=== PATIENT | female | born 1980 | race Caucasian/White ===

== ENCOUNTER 2016-07-31 02:06 | Observation (INO) | payer BC, OTHER ==
[2016-07-31 03:42] LABS: HEMOGLOBIN 10.9 gm/dl (12.3-15.3); RED BLOOD COUNT 3.53 M/UL (4.00-5.10); WHITE BLOOD COUNT 8.2 K/UL (4.5-11.0)
[2016-07-31 03:59] LABS: BUN/CREATININE RATIO 12 (0-10)
== END 2016-07-31 19:23 | disposition home or self-care (01) ==
LOC: GENOP 02:06 → OB 06:52
PROVIDERS: ADMIT Obstetrics & Gynecology
DX: O99.613 Diseases of the digestive system complicating pregnancy, third trimester (principal); A08.4 Viral intestinal infection, unspecified; K21.9 Gastro-esophageal reflux disease without esophagitis; O99.89 Other specified diseases and conditions complicating pregnancy, childbirth and the puerperium; R10.9 Unspecified abdominal pain; O99.343 Other mental disorders complicating pregnancy, third trimester; F32.9 Major depressive disorder, single episode, unspecified; O24.419 Gestational diabetes mellitus in pregnancy, unspecified control; O99.513 Diseases of the respiratory system complicating pregnancy, third trimester; J45.909 Unspecified asthma, uncomplicated; Z3A.35 35 weeks gestation of pregnancy; Z90.49 Acquired absence of other specified parts of digestive tract
CPT/HCPCS: 80053; 81001; 82150; 83690; 85027; 96360; 96361; 96367; 96374; 96375; 96376; C9113; G0378; J2405; J2550; J7050; J7120

== ENCOUNTER 2016-08-29 05:03 | Inpatient (IN) | payer BC, OTHER ==
[~2016-08-29] VITALS: Ht 170.2 cm; Wt 127.0 kg
[2016-08-29 05:56] LABS: HEMOGLOBIN 11.1 gm/dl (12.3-15.3); RED BLOOD COUNT 3.55 M/UL (4.00-5.10); WHITE BLOOD COUNT 8.9 K/UL (4.5-11.0)
[2016-08-30 03:02] LABS: HEMOGLOBIN 9.8 gm/dl (12.3-15.3)
== END 2016-08-31 12:04 | disposition home or self-care (01) | DRG 775 ==
LOC: OB 05:03
PROVIDERS: ADMIT Obstetrics & Gynecology
PROC: 10907ZC Drainage of Amniotic Fluid, Therapeutic from Products of Conception, Via Natural or Artificial Opening (ICD-10-PCS; principal; 2016-08-29)
PROC: 10E0XZZ Delivery of Products of Conception, External Approach (ICD-10-PCS; 2016-08-29)
PROC: 0HQ9XZZ Repair Perineum Skin, External Approach (ICD-10-PCS; 2016-08-29)
PROC: 3E0234Z Introduction of Serum, Toxoid and Vaccine into Muscle, Percutaneous Approach (ICD-10-PCS; 2016-08-31)
DX: O99.214 Obesity complicating childbirth (principal); O99.344 Other mental disorders complicating childbirth; F32.9 Major depressive disorder, single episode, unspecified; M19.90 Unspecified osteoarthritis, unspecified site; J45.909 Unspecified asthma, uncomplicated; K58.9 Irritable bowel syndrome, unspecified; K44.9 Diaphragmatic hernia without obstruction or gangrene; O75.89 Other specified complications of labor and delivery; R22.43 Localized swelling, mass and lump, lower limb, bilateral; O70.9 Perineal laceration during delivery, unspecified; O75.81 Maternal exhaustion complicating labor and delivery; Z3A.39 39 weeks gestation of pregnancy; Z37.0 Single live birth; Z82.49 Family history of ischemic heart disease and other diseases of the circulatory system; Z83.3 Family history of diabetes mellitus; Z83.49 Family history of other endocrine, nutritional and metabolic diseases; Z23 Encounter for immunization
CPT/HCPCS: 36415; 51702; 81001; 82800; 85014; 85018; 85025; 90715; J2590; J2795; J3010; J7120

== ENCOUNTER 2016-09-06 15:20 | Observation (INO) | payer BC, OTHER ==
[~2016-09-06] VITALS: Ht 170.2 cm; Wt 127.0 kg
[2016-09-06 16:05] LABS: HEMOGLOBIN 10.9 gm/dl (12.3-15.3); RED BLOOD COUNT 3.51 M/UL (4.00-5.10); WHITE BLOOD COUNT 6.3 K/UL (4.5-11.0)
[2016-09-06 16:42] LABS: BUN/CREATININE RATIO 23 (0-10)
[2016-09-07 05:37] LABS: BUN/CREATININE RATIO 17 (0-10)
[2016-09-07] MEDS ORDERED: LISINOPRIL5 MG PO (16:37)
== END 2016-09-07 16:59 | disposition home or self-care (01) ==
LOC: ER1 15:20 → ZEROF 18:00 → OB 21:50
PROVIDERS: Emergency Medicine; ADMIT Obstetrics & Gynecology
DX: O16.5 Unspecified maternal hypertension, complicating the puerperium (principal); I11.0 Hypertensive heart disease with heart failure; O99.43 Diseases of the circulatory system complicating the puerperium; I50.30 Unspecified diastolic (congestive) heart failure; I07.1 Rheumatic tricuspid insufficiency; R00.1 Bradycardia, unspecified; Z87.19 Personal history of other diseases of the digestive system; Z87.891 Personal history of nicotine dependence; Z82.49 Family history of ischemic heart disease and other diseases of the circulatory system; Z90.49 Acquired absence of other specified parts of digestive tract; Z79.899 Other long term (current) drug therapy
CPT/HCPCS: ECHO; 36415; 71010; 80048; 80053; 81001; 82150; 82550; 82553; 83690; 83874; 83880; 84484; 85025; 85610; 85730; 87086; 93005; 93306; 96374; 96375; 96376; 99285; G0378; J0360; J1940; J2550

== ENCOUNTER → 2016-09-08 | Outpatient (CLI) | payer BC, OTHER ==
[~2016-09-08] MED LIST: LISINOPRIL5 MG PO
== END ==
LOC: LAB 07:33
DX: Z53.9 Procedure and treatment not carried out, unspecified reason (principal)

== ENCOUNTER 2022-01-07 12:00 | Emergency (ER) | payer BC ==
[2022-01-07 12:30] LABS: HEMOGLOBIN 13.6 gm/dl (12.3-15.3); RED BLOOD COUNT 4.76 M/UL (4.00-5.10); WHITE BLOOD COUNT 2.6 K/UL (4.5-11.0)
[2022-01-07 12:51] LABS: BUN/CREATININE RATIO 10 (0-10)
[2022-01-07] MEDS ORDERED: ZOFRAN 4 MG TAB4 MG PO (14:23)
== END 2022-01-07 14:51 | disposition home or self-care (01) ==
LOC: ER1 12:00
PROVIDERS: Emergency Medicine
DX: U07.1 COVID-19 (principal)
CPT/HCPCS: 71045; 80053; 84484; 85025; 93005; 96361; 96374; 99284; J2405